=== PATIENT | female | born 2000 | race Caucasian/White ===

== ENCOUNTER 2018-10-12 23:01 | Emergency (ER) | payer OTHER ==
[2018-10-12 23:41] VITALS: BP 124/79
[2018-10-13] MEDS ORDERED: KETOROLAC TROMETHAMINE 60 MG/2 ML SDV IM ONE (00:22)
--- NOTE | 2018-10-13 00:24 | ER Document Report ---
ED Medical Screen (RME) - General Chief Complaint: Lower Abdominal Pain Stated Complaint: ABDOMINAL PAIN Time Seen by Provider: 10/13/18 00:18 Notes: 18-year-old female with chief complaint of lower abdominal/pelvic pain with frequent irregular vaginal bleeding and clots. She states tonight the pain became much sharper. She denies vomiting, fever, vaginal discharge, flank pain. Never had an ultrasound. Does not think she is . Denies surgeries or medical history. TRAVEL OUTSIDE OF THE [place] IN LAST 30 DAYS: No Physical Exam - Vital signs Vitals: Temp Pulse Resp BP Pulse Ox 98.2 F 65 18 124/79 99 10/12/18 23:40 10/12/18 23:40 10/12/18 23:40 10/12/18 23:40 10/12/18 23:40 - Abdominal Tenderness: Tender - Tenderness on both sides of the abdominal/pelvic area, no guarding, upper abdomen seems benign, exam limited by sitting position Course - Re-evaluation Re-evalutation: I have greeted and performed a rapid initial assessment of this patient. A comprehensive ED assessment and evaluation of the patient, analysis of test results and completion of the medical decision making process will be conducted by additional ED providers. - Vital Signs Vital signs: Temp Pulse Resp BP Pulse Ox 98.2 F 65 18 124/79 99 10/12/18 23:40 10/12/18 23:40 10/12/18 23:40 10/12/18 23:40 10/12/18 23:40
[2018-10-13 00:33] LABS: ABSOLUTE EOSINOPHILS # (AUTO) 0.1 10^3/uL (0.0-0.6); ABSOLUTE LYMPHOCYTES (AUTO) 1.9 10^3/uL (0.5-4.7); ABSOLUTE MONOCYTES (AUTO) 0.4 10^3/uL (0.1-1.4); ABSOLUTE NEUT (AUTO) 4.9 10^3/uL (1.7-8.2); BASOPHILS % (AUTO) 0.2 % (0-2); EOSINOPHILS % (AUTO) 1.6 % (0-6); HEMATOCRIT 40.1 % (36.0-47.0); HEMOGLOBIN 13.4 g/dL (12.0-15.5); LYMPHOCYTES % (AUTO) 25.7 % (13-45); MEAN CORPUSCULAR HEMOGLOBIN 30.2 pg (27.0-33.4); MEAN CORPUSCULAR HGB CONC 33.3 g/dL (32.0-36.0); MEAN CORPUSCULAR VOLUME 91 fl (80-97); PLATELET COUNT 323 10^3/uL (150-450); RED BLOOD COUNT 4.42 10^6/uL (3.72-5.28); RED CELL DISTRIBUTION WIDTH 12.5 % (11.5-14.0); SEGMENTED NEUTROPHILS % (AUTO) 66.5 % (42-78); TOTAL CELLS COUNTED % (AUTO) 100 %; WHITE BLOOD COUNT 7.4 10^3/uL (4.0-10.5)
[2018-10-13 00:42] LABS: APPEARANCE,URINE SLIGHTLY-CLOUDY; BILIRUBIN,URINE NEGATIVE (NEGATIVE); COLOR,URINE YELLOW; GLUCOSE, URINE NEGATIVE (NEGATIVE); KETONES,URINE TRACE mg/dL (NEGATIVE); LEUKOCYTE ESTERASE,URINE SMALL (NEGATIVE); NITRITE,URINE NEGATIVE (NEGATIVE); PROTEIN,URINE NEGATIVE (NEGATIVE); URINE SPECIFIC GRAVITY 1.028; UROBILINOGEN,URINE NEGATIVE mg/dL (<2.0)
[2018-10-13 01:20] LABS: ANION GAP 10 (5-19); BLOOD UREA NITROGEN 14 mg/dL (7-20); CALCIUM 9.5 mg/dL (8.4-10.2); CARBON DIOXIDE 28 mmol/L (22-30); CHLORIDE 105 mmol/L (98-107); GLUCOSE 90 mg/dL (75-110); POTASSIUM 4.4 mmol/L (3.6-5.0); SODIUM 143.4 mmol/L (137-145)
--- NOTE | 2018-10-13 03:05 | RADIOLOGY REPORT (SQ) ---
EXAM DESCRIPTION: US TRANSVAGINAL COMPLETED DATE/TME: 10/13/2018 00:20 CLINICAL HISTORY: 18 years, Female, sharp pelvic pain, vaginal bleeding COMPARISON: None. TECHNIQUE: Transvaginal grayscale and color images of the pelvis were obtained LIMITATIONS: None. FINDINGS: The uterus is anteverted and measures 8.3 x 3.8 x 4.8 cm. The endometrium is normal thickness measuring up to 6 mm. The right ovary measures 2.9 x 1.4 x 3.2 cm. The left ovary measures 3.2 x 2.7 x 2.9 cm. Both ovaries demonstrate normal flow. The left ovary contains a simple cyst that measures 2.4 x 1.9 x 1.9 cm. No follow-up imaging is recommended. No free fluid is detected. IMPRESSION: Unremarkable pelvic ultrasound. copyright 2010 [employer]- All Rights Reserved
--- NOTE | 2018-10-13 03:20 | ER Document Report ---
ED General - General Chief Complaint: Lower Abdominal Pain Stated Complaint: ABDOMINAL PAIN Time Seen by Provider: 10/13/18 00:18 Notes: Patient is a 18-year-old female with past medical history of dysfunctional uterine bleeding who presents with heavy vaginal bleeding and lower abdominal pain. Patient states that she has been having bleeding for approximately 10 days and often has very heavy menstrual cycles with bleeding that last for we eks. Patient states that she has been passing clots and is concerned that "something else could be wrong". States that there is nothing otherwise new or different regarding her degree of bleeding or pain from her usual menstrual cycle. Describes the lower abdominal pain as being a throbbing, aching, moderate intensity, constant discomfort. Ibuprofen moderately improves her symptoms. Nothing worsens her symptoms. Has not seen her ACCOUNT MANAGER regarding today's concerns. TRAVEL OUTSIDE OF THE [place] IN LAST 30 DAYS: No Past Medical History - General Information source: Patient - Social History Smoking Status: Never Smoker Frequency of alcohol use: None Drug Abuse: None Lives with: Spouse/Significant other Family History: Reviewed & Not Pertinent Review of Systems - Review of Systems Notes: Constitutional: Negative for fever. HENT: Negative for sore throat. Eyes: Negative for visual changes. Cardiovascular: Negative for chest pain. Respiratory: Negative for shortness of breath. Gastrointestinal: Positive for lower abdominal pain Genitourinary: Positive for vaginal bleeding Musculoskeletal: Negative for back pain. Skin: Negative for rash. Neurological: Negative for headaches, weakness or numbness. 10 point ROS negative except as marked above and in HPI. Physical Exam - Vital signs Vitals: Temp Pulse Resp BP Pulse Ox 98.2 F 65 18 124/79 99 10/12/18 23:40 10/12/18 23:40 10/12/18 23:40 10/12/18 23:40 10/12/18 23:40 Interpretation: Normal Notes: PHYSICAL EXAMINATION: GENERAL: Well-appearing, well-nourished and in no acute distress. HEAD: Atraumatic, normocephalic. EYES: Pupils equal round and reactive to light, extraocular movements intact, sclera anicteric, conjunctiva are normal. ENT: nares patent, oropharynx clear without exudates. Moist mucous membranes. NECK: Normal range of motion, supple without lymphadenopathy LUNGS: Breath sounds clear to auscultation bilaterally and equal. No wheezes rales or rhonchi. HEART: Regular rate and rhythm without murmurs ABDOMEN: Soft, nontender, normoactive bowel sounds. No guarding, no rebound. No masses appreciated. EXTREMITIES: Normal range of motion, no pitting or edema. No cyanosis. NEUROLOGICAL: No focal neurological deficits. Moves all extremities spontaneously and on command. PSYCH: Normal mood, normal affect. SKIN: Warm, Dry, normal turgor, no rashes or lesions noted. Course - Re-evaluation Re-evalutation: 10/13/18 03:18 Presentation is most consistent with dysfunctional uterine bleeding and otherwise well-appearing patient. Her hemoglobin was within normal limits. She is not . No tachycardia or hypotension. Examination is otherwise unremarkable. She denies bleeding through more than 2 pads an hour at any point in time. Ultrasound obtained in triage noted to be unremarkable. No active bleeding at this time. I have informed patient about treatment options that she can discuss with her ACCOUNT MANAGER including hormonal control to terminate her cycle. At this time will discharge with return precautions and follow-up recommendations. Verbal discharge instructions given a the bedside and opportunity for questions given. Medication warnings reviewed. Patient is in agr eement with this plan and has verbalized understanding of return precautions and the need for primary care follow-up in the next 24-72 hours. - Vital Signs Vital signs: Temp Pulse Resp BP Pulse Ox 98.2 F 65 18 124/79 99 10/12/18 23:40 10/12/18 23:40 10/12/18 23:40 10/12/18 23:40 10/12/18 23:40 - Laboratory Result Diagrams: 10/13/18 00:20 10/13/18 00:20 Laboratory results interpreted by me: 10/13/18 00:20 Urine Ketones TRACE H Ur Leukocyte Esterase SMALL H Urine Ascorbic Acid 40 H - Diagnostic Test Radiology reviewed: Reports reviewed Discharge - Discharge Clinical Impression: Dysfunctional uterine bleeding, Abdominal cramping Condition: Good Disposition: HOME, SELF-CARE Additional Instructions: You were seen today for dysfunctional uterine bleeding. This is when you have abnormally heavy bleeding or painful cycles or bleed longer than a normal m enstrual cycle. You need to follow-up with ACCOUNT MANAGER or your primary care physician the next 1-3 days. Your ultrasound is normal. Return immediately if you worsening pain, you began bleeding through more than 2 pads per hour for more than 3 hours, you pass out, have persistent vomiting, develop a fever greater than 100.4F, or any other symptoms that are concerning to you.
== END 2018-10-13 03:20 | disposition home or self-care (01) ==
LOC: ER 23:01
DX: N93.8 Other specified abnormal uterine and vaginal bleeding (principal); R10.30 Lower abdominal pain, unspecified
CPT/HCPCS: 36415; 76830; 80048; 81001; 84703; 85025; 93976; 99284